=== PATIENT | female | born 1950 | race African-American/Black ===

== ENCOUNTER 2017-06-04 07:17 | Emergency (ER) | payer BC, MEDICARE ==
[2017-06-04] MEDS: ACETAMINOPHEN 325 MG TAB PO (08:13)
== END 2017-06-04 09:33 | disposition home or self-care (01) ==
LOC: FTE 07:17
DX: R07.89 Other chest pain (principal); Z87.891 Personal history of nicotine dependence
CPT/HCPCS: 71045; 93005; 99284-25